=== PATIENT | male | born 1950 | race Caucasian/White ===

== ENCOUNTER 2022-05-01 20:44 | Inpatient (IN) ==
--- NOTE | 2022-05-01 21:32 | Emergency Department Note ---
History of Present Illness General Chief complaint: Respiratory Distress Stated complaint: TROUBLE BREATHING,DIZZINESS,SOB Time Seen by Provider: 05/01/22 21:31 History of Present Illness This 72-year-old male patient presents to the emergency department for evaluation of shortness of breath for the past 1-2 weeks with development of dizziness. His SOB is worse with exertion. He was sick the last 2 weeks of March, but denies any illnesses since that time. He was not evaluated at the time of illness did not do any at home COVID testing. He states that the URI symptoms have resolved from his illness in March, but he has not had very much energy since recovering from his illness. Has had dizziness intermittently since his illness in March resolved as well. Denies any chest pain. Denies any cough, fevers, or other URI symptoms currently. Denies any abdominal pain, nausea, or vomiting. Denies any urinary symptoms or problems with his BMs. Denies hematochezia, melena, hematuria, hemoptysis, or hematemesis. He denies any history of problems with his lungs - no COPD, emphysema, or asthma. He denies tobacco use. Denies any known heart problems. The patient denies recent long car or plane rides or recent injury/trauma/surgery. Denies any personal or family history of blood clots or bleeding disorders. Denies any hormonal medication use. He denies any significant health problems, but has not been to see a doctor in about 20 years. Not currently on any medications. Home Medications Medication Instructions Recorded Confirmed Type meclizine 25 mg tablet (Dramamine 25 mg PO DIRECTED PRN Motion 05/01/22 05/01/22 History Less Drowsy) Sickness Allergies Allergy/AdvReac Type Severity Reaction Status Date / Time No Known Allergies Allergy Verified 05/01/22 22:24 Past Med/Surg History Medical History No pertinent past medical history Surgical History History of appendectomy Family History Other Heart disease Social History Smoking Status: Never smoker Second Hand Exposure: No; Do You Dip or Chew Tobacco: No; Tobacco Cessation Education Requested by Patient: No Hx Alcohol Use: Yes Alcohol type: hard liquor Hx Substance Use: No Preferred Language: Norwegian Communication Ability: Effective Folder Machine Operator Required: No Beliefs That Will Affect Care: None Current Living Situation: Alone Other Information That Helps Us Care for You: No Feels Safe at Home: Yes Safety Concerns: Feels Safe At This Time Assistive Devices: Denture - Upper and Denture - Lower Review of Systems See HPI for pertinent positives & negatives. Physical Exam Vital Signs Vital Signs - 24 hr 05/01/22 20:51 05/01/22 21:08 05/01/22 21:05 Temperature 36.5 C Temperature Source Temporal Artery Scan Pulse Rate 128 H 120 H 120 H Pulse Rate from SpO2 Sensor 115 H Respiratory Rate 26 H 26 H Respiratory Effort / Characteristics Labored Blood Pressure Blood Pressure Mean Pulse Oximetry 92 93 Oxygen Delivery Method Room Air Room Air Sepsis Recent Fever Within 48 Hours No Sepsis New/Unexplained Change in Mental Status No Sepsis Action Taken by Nursing No Action Required 05/01/22 21:06 05/01/22 21:06 05/01/22 21:10 Temperature Temperature Source Pulse Rate 120 H 116 H Pulse Rate from SpO2 Sensor 119 H 116 H Respiratory Rate 20 20 Respiratory Effort / Characteristics Blood Pressure 152/104 H Blood Pressure Mean 120 Pulse Oximetry 93 94 Oxygen Delivery Method Room Air Room Air Sepsis Recent Fever Within 48 Hours Sepsis New/Unexplained Change in Mental Status Sepsis Action Taken by Nursing 05/01/22 21:20 05/01/22 21:30 05/01/22 21:30 Temperature Temperature Source Pulse Rate 113 H 110 H Pulse Rate from SpO2 Sensor 113 H 110 H Respiratory Rate 26 H 24 Respiratory Effort / Characteristics Blood Pressure 151/108 H Blood Pressure Mean 122 Pulse Oximetry 93 92 Oxygen Delivery Method Room Air Sepsis Recent Fever Within 48 Hours Sepsis New/Unexplained Change in Mental Status Sepsis Action Taken by Nursing 05/01/22 21:40 05/01/22 21:50 05/01/22 22:00 Temperature Temperature Source Pulse Rate 112 H 108 H Pulse Rate from SpO2 Sensor 113 H 108 H Respiratory Rate 24 23 Respiratory Effort / Characteristics Blood Pressure 168/113 H Blood Pressure Mean 131 Pulse Oximetry 94 93 Oxygen Delivery Method Sepsis Recent Fever Within 48 Hours Sepsis New/Unexplained Change in Mental Status Sepsis Action Taken by Nursing 05/01/22 22:00 05/01/22 22:10 05/01/22 22:20 Temperature Temperature Source Pulse Rate 108 H 103 H 101 H Pulse Rate from SpO2 Sensor 108 H 104 H 102 H Respiratory Rate 20 25 H 23 Respiratory Effort / Characteristics Blood Pressure Blood Pressure Mean Pulse Oximetry 94 95 95 Oxygen Delivery Method Sepsis Recent Fever Within 48 Hours Sepsis New/Unexplained Change in Mental Status Sepsis Action Taken by Nursing 05/01/22 23:30 05/02/22 00:00 Temperature Temperature Source Pulse Rate 97 H 91 H Pulse Rate from SpO2 Sensor 97 H 93 H Respiratory Rate 24 20 Respiratory Effort / Characteristics Blood Pressure 152/112 H 178/126 H Blood Pressure Mean 125 143 Pulse Oximetry 93 95 Oxygen Delivery Method Room Air Room Air Sepsis Recent Fever Within 48 Hours Sepsis New/Unexplained Change in Mental Status Sepsis Action Taken by Nursing VITALS: Vitals are noted on the nurse's note and reviewed by myself. GENERAL: Non toxic, no acute distress, non-diaphoretic. SKIN: Capillary refill <2 sec. EARS: External auditory canals clear, tympanic membranes pearly marx without erythema or effusion bilaterally. EYES: PERRLA. EOMI. Conjunctivae without injection, sclerae without icterus. NOSE: Patent without discharge. MOUTH: Mucous membranes moist. Uvula midline. Airway patent. NECK: Supple without nuchal rigidity. HEART: Tachycardic with grade III/ systolic flow murmur without gallops or rubs. LUNGS: Clear to auscultation bilaterally without wheezes, rales or rhonchi. No retractions or accessory muscle use. ABDOMEN: Positive bowel sounds x 4. Normal tympanic percussion. Soft, nontender, without masses or organomegaly. Bedoya sign negative. No guarding or rebound tenderness. No focal RLQ or LLQ tenderness. MUSCULOSKELETAL: No tenderness to palpation of the bilateral calves. Negative Homans' sign bilaterally. Peripheral pulses 2+. NEURO: Patient was alert and oriented to person place and time. No focal neurological deficits. Course Administered Medications Heparin Sodium/Dextrose (Heparin Sodium/Dextrose) 25,000 units in 500 mls @ 30 mls/hr IV .[id number] [facility]; Protocol Stop: 06/01/22 00:14 Last Admin: 05/02/22 00:39 Dose: 1,500 units/hr, 30 mls/hr Documented By: BRIDGETTE Co-signed By: LUZ Discontinued Medications Heparin Sodium (Porcine) (Heparin Sod (Porcine) 1000 Unit/Ml) 7,000 units IV TODAY@0015 MAXX Stop: 05/02/22 03:15 Last Admin: 05/02/22 00:39 Dose: 7,000 units Documented By: BRIDGETTE Co-signed By: LUZ Heparin Sodium/Dextrose (Heparin Iv Adult Wt-Based Standard With Bolus Protocol) 1 each IV NOW STA; Protocol Stop: 05/01/22 23:53 Last Admin: 05/02/22 00:46 Dose: Not Given Documented By: BRIDGETTE Sodium Chloride (Nss) 500 mls @ 999 mls/hr IV .Q31M STA Stop: 05/01/22 22:12 Last Infusion: 05/01/22 22:27 Dose: 0 mls/hr Documented By: Admin: 05/01/22 21:56 Dose: 999 mls/hr Documented By: DOTTIE Ioversol (Optiray 320 500ml) 112 ml IV ONCE ONE Stop: 05/01/22 22:58 Last Admin: 05/01/22 22:58 Dose: 112 ml Documented By: PAIGE Labetalol HCl (Labetalol Hcl Iv 5 Mg/Ml 20ml) 5 mg IV NOW STA Stop: 05/02/22 00:10 Last Admin: 05/02/22 00:38 Dose: 5 mg Documented By: BRIDGETTE Co-signed By: LUZ Medical Decision Making Differential Diagnosis Differential diagnosis includes URI, COVID, RSV, influenza, bronchitis, pneumonia, pneumothorax, hemothorax, PE, MN, pericarditis, myocarditis, airway obstruction, aspiration, pulmonary edema, asthma, COPD, CHF, pleurisy, metabolic acidosis, anemia, neoplasm, or others. Laboratory Data Attestation: I reviewed the patient's lab results. 05/01/22 21:05 05/01/22 21:05 Lab Results 05/01/22 05/01/22 05/01/22 Range/Units 21:05 21:05 21:05 WBC 7.39 (4.8-10.8) K/ul RBC 5.73 (4.70-6.10) M/uL Hgb 14.7 (14.0-18.0) g/dl Hct 44.9 (42.0-52.0) % MCV 78.4 L (80.0-100.0) fL MCH 25.7 (25.0-34.0) pg MCHC 32.7 (32.0-36.0) g/dL RDW Std Deviation 47.5 H (36.4-46.3) fL RDW Coeff of Edvin 17.4 H (11.5-14.5) % Plt Count 342 (130-400) K/uL MPV 10.0 (9.4-12.4) fL Immature Gran % (Auto) 0.4 % Neut % (Auto) 69.2 % Lymph % (Auto) 20.7 % [place] % (Auto) 8.4 % Eos % (Auto) 0.4 % Baso % (Auto) 0.9 % Neut # (Auto) 5.11 (1.40-6.50) K/uL Lymph # (Auto) 1.53 (1.2-3.4) K/uL [place] # (Auto) 0.62 H (0.11-0.59) K/uL Eos # (Auto) 0.03 (0-0.50) K/uL Baso # (Auto) 0.07 (0-0.2) K/uL Immature Gran # (Auto) 0.03 (0.01-0.20) K/uL PT Cancelled INR Cancelled APTT Cancelled PTT Ratio Cancelled Sodium 141 (136-145) mmol/L Potassium 4.0 (3.5-5.1) mmol/L Chloride 111 H (98-107) mmol/L Carbon Dioxide 21 (21-32) mmol/L Anion Gap 9 (3-11) BUN 21 (6-23) mg/dl Creatinine 1.42 H (0.6-1.4) mg/dl Est Cr Clr Drug Dosing 55.0 ml/min Est GFR ( Amer) 56.4 ml/min Est GFR (Non-Af Amer) 48.7 ml/min BUN/Creatinine Ratio 14.8 (10-20) Glucose 172 H (70-99(Fasting)) mg/dl Calcium 9.3 (8.5-10.1) mg/dl Total Bilirubin 0.8 (0.2-1.0) mg/dl AST 13 (13-39) U/L ALT 11 (7-52) U/L Alkaline Phosphatase 80 (34-104) U/L Troponin I High Sens 82.1 H* (0-20) pg/ml Total Protein 8.0 (6.0-8.3) gm/dl Albumin 4.3 (3.4-5.0) gm/dl Globulin 3.7 (2.5-4.0) gm/dl Albumin/Globulin Ratio 1.2 (0.9-2) SARS-CoV-2 (PCR) (Negative) Influenza Type A (PCR) (Neg) Influenza Type B (PCR) (Neg) RSV (RT-PCR) (Neg) 05/01/22 05/01/22 Range/Units 21:52 23:45 WBC (4.8-10.8) K/ul RBC (4.70-6.10) M/uL Hgb (14.0-18.0) g/dl Hct (42.0-52.0) % MCV (80.0-100.0) fL MCH (25.0-34.0) pg MCHC (32.0-36.0) g/dL RDW Std Deviation (36.4-46.3) fL RDW Coeff of Edvin (11.5-14.5) % Plt Count (130-400) K/uL MPV (9.4-12.4) fL Immature Gran % (Auto) % Neut % (Auto) % Lymph % (Auto) % [place] % (Auto) % Eos % (Auto) % Baso % (Auto) % Neut # (Auto) (1.40-6.50) K/uL Lymph # (Auto) (1.2-3.4) K/uL [place] # (Auto) (0.11-0.59) K/uL Eos # (Auto) (0-0.50) K/uL Baso # (Auto) (0-0.2) K/uL Immature Gran # (Auto) (0.01-0.20) K/uL PT 11.2 INR 1.1 APTT 26.5 PTT Ratio 1.0 Sodium (136-145) mmol/L Potassium (3.5-5.1) mmol/L Chloride (98-107) mmol/L Carbon Dioxide (21-32) mmol/L Anion Gap (3-11) BUN (6-23) mg/dl Creatinine (0.6-1.4) mg/dl Est Cr Clr Drug Dosing ml/min Est GFR ( Amer) ml/min Est GFR (Non-Af Amer) ml/min BUN/Creatinine Ratio (10-20) Glucose (70-99(Fasting)) mg/dl Calcium (8.5-10.1) mg/dl Total Bilirubin (0.2-1.0) mg/dl AST (13-39) U/L ALT (7-52) U/L Alkaline Phosphatase (34-104) U/L Troponin I High Sens (0-20) pg/ml Total Protein (6.0-8.3) gm/dl Albumin (3.4-5.0) gm/dl Globulin (2.5-4.0) gm/dl Albumin/Globulin Ratio (0.9-2) SARS-CoV-2 (PCR) NEGATIVE (Negative) Influenza Type A (PCR) Negative (Neg) Influenza Type B (PCR) Negative (Neg) RSV (RT-PCR) Negative (Neg) Imaging Data Radiologist's Impression: Preliminary Findings Only See Final Report For Complete Findings CTA CHEST: Pulmonary emboli extend from the right and left pulmonary arteries into the segmental branches throughout both lungs. Mild paradoxical bowing of the intraventricular septum concerning for right heart strain. No consolidation. The heart size is within normal limits. No pathologically enlarged lymph nodes. Large hiatal hernia. No fracture. Radiologist: Jennifer Alberto MD Study ready at 23:10 and initial results transmitted at 23:39 Communications: Clear Time Type Notes 05/01/22 23:41 Call Doctor Regarding Abo ve results, called Dr. Liat Whittaker on 05/01 23:41 (-05:00) [facility] Narrative I examined the patient. An IV lock was placed and labs were drawn. The patient was tachycardic, tachypneic, and hypertensive upon presentation. Continuous color television console monitor: Order was placed for continuous color television console monitor. Patient was placed on the color television console monitor and continuous pulse ox. Patient was noted to be in normal sinus rhythm at an initial rate of 115 bpm per my interpretation. EKG was interpreted by myself as sinus tachycardia at 127 bpm with an incomplete right bundle branch block with no previous EKG to compare. No acute ST or T wave changes. He declined any medication for pain while in the emergency department. He was given 500 mL normal saline solution bolus. The patient's blood pressure continued to rise while in the emergency department and he was given labetalol 5 mg IV. CBC without evidence for leukocytosis or anemia. Coags were normal. Creatinine elevated 1.42 and glucose 172, but CMP otherwise unremarkable. Troponin was elevated at 82.1. COVID, influenza, and RSV were negative. CTA of the chest was reviewed by myself and read by stat rad as above and shows pulmonary emboli extending from the right and left pulmonary arteries into the segmental branches throughout both lungs. Mild paradoxical bowing of the intraventricular septum concerning for right heart strain. The patient has not seen a family doctor in over 20 years per patient. The patient's symptoms started after an upper respiratory illness the end of March. The patient may have had undiagnosed COVID and developed the PEs secondary to COVID. He also has a heart murmur on exam that he was not aware of that will need to be evaluated further. I had a meaningful discussion about this patient with Dr. Leiva who agrees with my assessment and the treatment plan. The patient denies any history of intracranial bleeding, GI bleeding, or other abnormal bleeding. He was started on heparin for the PEs. I spoke with the on-call hospitalist who agreed to admit the patient for further evaluation and treatment. Please refer to their dictation for further details. The patient's care was transferred in stable condition. Impression & Plan Pulmonary emboli Discharge Plan Visit Data Chief Complaint: Respiratory Distress Stated Complaint: TROUBLE BREATHING,DIZZINESS,SOB ED Provider: Angela Leiva ED Midlevel Provider: Idalia Whittaker Discharge Problem: Pulmonary emboli Patient Disposition: Admitted As Inpatient Condition: Good Discharge Instructions Interventions: ED Discharge Assessment Last Done: 05/02/22 02:25
[2022-05-01] MEDS ORDERED: SODIUM CHLORIDE 0.9% 500 ML IV STA (21:42)
[2022-05-01 22:17] LABS: Basophils # (auto) 0.07 K/uL (0-0.2); Basophils % (auto) 0.9 %; Eosinophils # (auto) 0.03 K/uL (0-0.50); Eosinophils % (auto) 0.4 %; Hematocrit (blood only) 44.9 % (42.0-52.0); Hemoglobin 14.7 g/dl (14.0-18.0); Immature Granulocytes # (auto) 0.03 K/uL (0.01-0.20); Immature Granulocytes % (auto) 0.4 %; Lymphocytes # (auto) 1.53 K/uL (1.2-3.4); Lymphocytes % (auto) 20.7 %; Mean Corpuscular Hemoglobin 25.7 pg (25.0-34.0); Mean Corpuscular Hgb Conc 32.7 g/dL (32.0-36.0); Mean Corpuscular Volume 78.4 fL (80.0-100.0); Monocytes # (auto) 0.62 K/uL (0.11-0.59); Monocytes % (auto) 8.4 %; Neutrophils # (auto) 5.11 K/uL (1.40-6.50); Neutrophils % (auto) 69.2 %; Platelet Count 342 K/uL (130-400); RDW Coefficient of Variation 17.4 % (11.5-14.5); RDW Standard Deviation 47.5 fL (36.4-46.3); Red Blood Count 5.73 M/uL (4.70-6.10); White Blood Count 7.39 K/ul (4.8-10.8)
[2022-05-01 22:24] LABS: Albumin Globulin Ratio 1.2 (0.9-2); Albumin Level 4.3 gm/dl (3.4-5.0); BUN Creatinine Ratio 14.8 (10-20); Bilirubin,Total 0.8 mg/dl (0.2-1.0); Calcium 9.3 mg/dl (8.5-10.1); Est GFR (African American) 56.4 ml/min; Est GFR (Non-African American) 48.7 ml/min; Globulin 3.7 gm/dl (2.5-4.0)
[2022-05-01 22:35] LABS: Troponin I High Sensitivity 82.1 pg/ml (0-20)
[2022-05-01] MEDS ORDERED: OPTIRAY 320 500ml IV ONE (22:57)
[2022-05-01 23:06] LABS: Influenza A virus by PCR Negative (Neg); Influenza B virus by PCR Negative (Neg); RSV by PCR Negative (Neg); SARS CoV2 RNA(COVID-19) Ceph NEGATIVE (Negative)
[2022-05-01] MEDS ORDERED: Heparin IV Adult Wt-Based Standard WITH Bolus Protocol IV STA (23:52)
[2022-05-02] MEDS ORDERED: HEPARIN SOD (PORCINE) 1000 UNIT/ML IV ONE (00:07)
[2022-05-02] MEDS ORDERED: LABETALOL HCL IV 5 MG/ML 20ML IV STA (00:09)
[2022-05-02] MEDS ORDERED: HEPARIN SOD (PORCINE) 1000 UNIT/ML IV SCH (00:15)
[2022-05-02] MEDS ORDERED: HEPARIN SODIUM/DEXTROSE 25,000 UNITS/500 ML BAG IV SCH (00:15)
[2022-05-02 00:33] LABS: INR 1.1 (0.9-1.1); Partial Thromboplastin Time 26.5 Seconds (21.0-31.0); Prothrombin Time 11.2 Seconds (9.0-12.0)
--- NOTE | 2022-05-02 00:34 | History & Physical Report ---
Date of Service May 02, 2022 Assessment & Plan (1) Pulmonary emboli: Plan: 72-year-old male with no known past medical history presenting with 2 weeks of progressive dyspnea on exertion. Patient tachycardic and tachypneic upon arrival. Labs with mild elevation of troponin = 82.1. CTA of the chest with bilateral PEs, suggestion of right heart strain. EKG with incomplete right bundle branch blockno prior studies available for comparison. Suspect provoked PE in setting of patient's recent illness. He describes URI with headache, fever, fatigue and cough several weeks ago which lasted approximately 10 days. No personal or family history of VTE. Presently afebrile, hemodynamically stable with heart rate = 85, blood pressure = 1 52/105. He is breathing 22 breaths/min saturating 94% on room air. No chest pain. Admit to PCU Continue heparin drip Check 2D echo Supplemental oxygen as needed Repeat troponin with a.m. labs Transition to DOAC in the morning Patient does not routinely seek medical care. He has not seen a physician for over 20 years. He is interested in establishing care. He lives in [facility]. We will check lipid panel and hemoglobin A1c with morning labs. Discussed with patient prior to ordering. Recommend establishing with a PCP so patient can undergo age-appropriate cancer screening and routine outpatient follow-up History of Present Illness Chief Complaint: Shortness of breath Primary Care Provider: NO PCP Miah Farley is a pleasant 72-year-old male with no known significant medical history presenting with persistent and progressive shortness of breath over the last 2 weeks. Patient reports being ill at the end of March for approximately 10 days. He had headache, dizziness, fever, fatigue and cough at that time. He did not take a COVID or influenza test. Since being ill, he has had persistent and progressive shortness of breath. He feels short of breath mostly with exertion, very minimal shortness of breath at rest. He denies chest pain, palpitations, dizziness, syncope. Denies lower extremity pain or swelling. No additional complaints such as fever, chills, abdominal pain, nausea, vomiting, diarrhea, constipation. In the ER patient is afebrile, heart rate initially elevated to 128 bpm. Blood pressure has been stable. Patient tachypneic upon arrival with respiratory rate of 26 breaths/min saturating 92% on room air. Work-up revealed mildly elevated troponin at 82. CTA as below with bilateral pulmonary emboli. Patient with no personal history of VTE and no known family history of VTE. He denies trauma, prolonged immobility outside of his recent illness. Patient does not routinely seek medical care and is not up-to-date with his age-appropriate cancer screenings to include colonoscopy and PSA. ER course: Normal saline x500 mL Labetalol 5 mg IV Heparin bolus and drip initiated per protocol Allergies Allergy/AdvReac Type Severity Reaction Status Date / Time No Known Allergies Allergy Verified 05/01/22 22:24 Home Medications Medication Instructions Recorded Confirmed Type meclizine 25 mg tablet (Dramamine 25 mg PO DIRECTED PRN Motion 05/01/22 05/01/22 History Less Drowsy) Sickness Past Med/Surg History Medical History No pertinent past medical history Surgical History History of appendectomy Family History (Updated 05/02/22 @ 01:19 by Diamond Corrigan DO) Other Heart disease Social History (Updated 05/02/22 @ 01:19 by Diamond Corrigan DO) Smoking Status: Never smoker Hx Alcohol Use: No Hx Substance Use: No Feels Safe at Home: Yes Review of Systems Review of Systems: All systems reviewed & are unremarkable except as noted in HPI & below Physical Exam Physical Exam: General: patient resting comfortably, NAD, non-toxic in appearance, AA&O x 4 Skin: warm, dry, intact, no rashes or lesions HEENT: NC/AT, PERRL, EOMI, anicteric sclera, conjunctiva without injection, external ear normal to inspection and nontender, nares patent, moist mucus membranes, dentition intact, no oropharyngeal lesions, neck supple, trachea midline, no LAD, no thyromegaly, no JVD Heart: +S1/S2, regular, no m/r/g Lungs: equal air entry bilaterally, no rales/rhonchi/wheezes Abd: +BS, soft, NT/ND, no masses/organomegaly/ascites Ext: warm, 2+ pulses in UE/LE bilaterally, no clubbing/cyanosis or edema Neuro: nonfocal, patient AA&O x 4, speech intact, no facial droop, moving all extremities on command with equal strength 5/5 Results & Data Results & Data ([facility]) Vital Signs (Past 12 Hours) Vital Signs Temp Pulse Resp BP Pulse Ox O2 Del Method 05/01/22 23:30 97 H 24 152/112 H 93 Room Air 05/01/22 22:20 101 H 23 95 05/01/22 22:10 103 H 25 H 95 05/01/22 22:00 108 H 20 94 05/01/22 22:00 168/113 H 05/01/22 21:50 108 H 23 93 05/01/22 21:40 112 H 24 94 05/01/22 21:30 110 H 24 92 05/01/22 21:30 151/108 H 05/01/22 21:20 113 H 26 H 93 Room Air 05/01/22 21:10 116 H 20 94 Room Air 05/01/22 21:06 152/104 H 05/01/22 21:06 120 H 20 93 Room Air 05/01/22 21:05 120 H 26 H 93 Room Air 05/01/22 21:08 120 H 05/01/22 20:51 36.5 C 128 H 26 H 92 Room Air Laboratory Results Laboratory Results WBC 7.39 K/ul (4.8-10.8) 05/01/22 21:05 RBC 5.73 M/uL (4.70-6.10) 05/01/22 21:05 Hgb 14.7 g/dl (14.0-18.0) 05/01/22 21:05 Hct 44.9 % (42.0-52.0) 05/01/22 21:05 MCV 78.4 fL (80.0-100.0) L 05/01/22 21:05 MCH 25.7 pg (25.0-34.0) 05/01/22 21:05 MCHC 32.7 g/dL (32.0-36.0) 05/01/22 21:05 RDW Std Deviation 47.5 fL (36.4-46.3) H 05/01/22 21:05 RDW Coeff of Edvin 17.4 % (11.5-14.5) H 05/01/22 21:05 Plt Count 342 K/uL (130-400) 05/01/22 21:05 MPV 10.0 fL (9.4-12.4) 05/01/22 21:05 Immature Gran % (Auto) 0.4 % 05/01/22 21:05 Neut % (Auto) 69.2 % 05/01/22 21:05 Lymph % (Auto) 20.7 % 05/01/22 21:05 [place] % (Auto) 8.4 % 05/01/22 21:05 Eos % (Auto) 0.4 % 05/01/22 21:05 Baso % (Auto) 0.9 % 05/01/22 21:05 Neut # (Auto) 5.11 K/uL (1.40-6.50) 05/01/22 21:05 Lymph # (Auto) 1.53 K/uL (1.2-3.4) 05/01/22 21:05 [place] # (Auto) 0.62 K/uL (0.11-0.59) H 05/01/22 21:05 Eos # (Auto) 0.03 K/uL (0-0.50) 05/01/22 21:05 Baso # (Auto) 0.07 K/uL (0-0.2) 05/01/22 21:05 Immature Gran # (Auto) 0.03 K/uL (0.01-0.20) 05/01/22 21:05 PT 11.2 Seconds (9.0-12.0) 05/01/22 23:45 INR 1.1 (0.9-1.1) 05/01/22 23:45 APTT 26.5 Seconds (21.0-31.0) 05/01/22 23:45 PTT Ratio 1.0 05/01/22 23:45 Sodium 141 mmol/L (136-145) 05/01/22 21:05 Potassium 4.0 mmol/L (3.5-5.1) 05/01/22 21:05 Chloride 111 mmol/L (98-107) H 05/01/22 21:05 Carbon Dioxide 21 mmol/L (21-32) 05/01/22 21:05 Anion Gap 9 (3-11) 05/01/22 21:05 BUN 21 mg/dl (6-23) 05/01/22 21:05 Creatinine 1.42 mg/dl (0.6-1.4) H 05/01/22 21:05 Est Cr Clr Drug Dosing 55.0 ml/min 05/01/22 21:05 Est GFR ( Amer) 56.4 ml/min 05/01/22 21:05 Est GFR (Non-Af Amer) 48.7 ml/min 05/01/22 21:05 BUN/Creatinine Ratio 14.8 (10-20) 05/01/22 21:05 Glucose 172 mg/dl (70-99(Fasting)) H 05/01/22 21:05 Calcium 9.3 mg/dl (8.5-10.1) 05/01/22 21:05 Total Bilirubin 0.8 mg/dl (0.2-1.0) 05/01/22 21:05 AST 13 U/L (13-39) 05/01/22 21:05 ALT 11 U/L (7-52) 05/01/22 21:05 Alkaline Phosphatase 80 U/L (34-104) 05/01/22 21:05 Troponin I High Sens 82.1 pg/ml (0-20) H* 05/01/22 21:05 Total Protein 8.0 gm/dl (6.0-8.3) 05/01/22 21:05 Albumin 4.3 gm/dl (3.4-5.0) 05/01/22 21:05 Globulin 3.7 gm/dl (2.5-4.0) 05/01/22 21:05 Albumin/Globulin Ratio 1.2 (0.9-2) 05/01/22 21:05 SARS-CoV-2 (PCR) NEGATIVE (Negative) 05/01/22 21:52 Influenza Type A (PCR) Negative (Neg) 05/01/22 21:52 Influenza Type B (PCR) Negative (Neg) 05/01/22 21:52 RSV (RT-PCR) Negative (Neg) 05/01/22 21:52 Diagnostic Findings CTA chest: Per stat read Pulmonary emboli extend from the right and left pulmonary arteries into the segmental branches throughout both lungs. Mild paradoxical bowing of the interventricular septum concerning for right heart strain. No consolidation. The heart size within normal limits. No pathologically enlarged lymph nodes. Large hiatal hernia. No fracture Chest x-rayper my interpretation. No acute process ECG Additional Comments: EKG revealed sinus tachycardia at 127 bpm, WA = 180, QRS = 98, QTc = 44, incomplete right bundle branch block present. No previous EKGs available for comparison Code Status & VTE Plan VTE Prophylaxis Plan VTE Prophylaxis will be ordered: Yes PG Care Time/CCT Total # of Minutes Spent Total Time Spent with Patient: Total time spent is greater than 50% in coordination of care (as documented) at patient's floor/unit and/or counseling patient: Coding Level of Care Code 21419 INT INP/OBS CARE 2MIN Diagnoses Pulmonary emboli I26.99
[2022-05-02] MEDS ORDERED: ACETAMINOPHEN 325 MG TAB PO PRN (02:23)
--- NOTE | 2022-05-02 07:46 | CT Scan Report ---
CHEST CTA for PULMONARY ARTERIES CT DOSE: 411.90 mGy.cm HISTORY: Shortness of breath. TECHNIQUE: Multiaxial CT images of the chest were performed following the intravenous administration of contrast to evaluate the pulmonary arteries. Maximal intensity projection images were also obtaine d. A dose lowering technique was utilized adhering to the principles of ALARA. COMPARISON STUDY: None. FINDINGS: Normal caliber thoracic aorta with no evidence for a dissection. No pleural or pericardial effusions. There is a large hiatus hernia containing the majority the stomach. No mediastinal or gama r lymphadenopathy. There is flattening of the intraventricular septum with the largest on the right v entricle consistent with right-sided heart strain. There is extensive bilateral pulmonary emboli invo lving the distal bilateral main pulmonary arteries and extending into the majority of the lobar and s egmental pulmonary arteries. Limited views the upper abdomen demonstrate normal liver and spleen. The right adrenal gland is unremarkable. No pneumothorax. The central airways are patent. Small patchy p eripheral densities within the right lower lobe may represent developing pulmonary infarcts. Otherwis e, the lungs are clear. There are old, healed right-sided rib fractures. IMPRESSION: 1. Extensive bilateral pulmonary emboli with associated right heart strain. 2. Large hiatus hernia. 3. Small peripheral airspace opacities within the right lower lobe may represent developing pulmonary infarcts. ACT 112: Negative or not required by law. Electronically signed by: Rustam Moralez M.D. 05/02/2022 7:43 AM
[2022-05-02 07:58] LABS: Hematocrit (blood only) 38.7 % (42.0-52.0); Hemoglobin 12.7 g/dl (14.0-18.0); Mean Corpuscular Hemoglobin 25.6 pg (25.0-34.0); Mean Corpuscular Hgb Conc 32.8 g/dL (32.0-36.0); Mean Platelet Volume 9.5 fL (9.4-12.4); Platelet Count 258 K/uL (130-400); RDW Standard Deviation 48.4 fL (36.4-46.3); Red Blood Count 4.96 M/uL (4.70-6.10); White Blood Count 6.35 K/ul (4.8-10.8)
[2022-05-02 08:16] LABS: BUN Creatinine Ratio 15.4 (10-20); Calcium 8.5 mg/dl (8.5-10.1); Creatinine Clr Calc Pharmacy 66.8 ml/min; Est GFR (African American) 71.3 ml/min; Est GFR (Non-African American) 61.5 ml/min; Potassium 3.8 mmol/L (3.5-5.1)
[2022-05-02 08:23] LABS: Troponin I High Sensitivity 47.1 pg/ml (0-20)
[2022-05-02 08:35] LABS: Partial Thromboplastin Ratio 2.4
--- NOTE | 2022-05-02 08:41 | XRay Report ---
XR chest 1V portable CLINICAL HISTORY: Shortness of breath. COMPARISON STUDY: No previous studies for comparison. FINDINGS: A large hiatal hernia is noted. There is no pneumothorax or pleural effusion. No consolidat ion is present. Cardiac size is normal. There is no evidence for pulmonary edema. IMPRESSION: 1. No acute cardiopulmonary findings. 2. Large hiatal hernia. ACT 112: Negative or not required by law. Electronically signed by: Jose Alejandro Heart M.D. 05/02/2022 8:40 AM
[2022-05-02 08:42] LABS: Partial Thromboplastin Time 66.2 Seconds (21.0-31.0)
[2022-05-02 08:50] LABS: Estimated Average Glucose 120 mg/dl; Hemoglobin A1C 5.8 % (4.5-5.6)
--- NOTE | 2022-05-02 10:15 | Electrocardiogram Report ---
Test Reason : Blood Pressure : / mmHG Vent. Rate : 127 BPM Atrial Rate : 127 BPM P-R Int : 180 ms QRS Dur : 098 ms QT Int : 278 ms P-R-T Axes : 038 015 033 degrees QTc Int : 404 ms Sinus tachycardia Incomplete right bundle branch block Abnormal ECG No previous ECGs available Confirmed by Alvarado Leiberman ([id number]) on 05/02/2022 10:14:56 AM Referred By: REFERRED SELF Confirmed By:Carlo Lieberman
[2022-05-02] MEDS ORDERED: APIXABAN 5 MG TABLET PO ONE (10:30)
--- NOTE | 2022-05-02 10:33 | XCELERA ---
[id number] \\[id number]_[id number]}___[id number]
--- NOTE | 2022-05-02 14:58 | Discharge Summary ---
Date of Service May 02, 2022 Admission HPI Per Admitting Provider Miah Farley is a pleasant 72-year-old male with no known significant medical history presenting with persistent and progressive shortness of breath over the last 2 weeks. Patient reports being ill at the end of March for approximately 10 days. He had headache, dizziness, fever, fatigue and cough at that time. He did not take a COVID or influenza test. Since being ill, he has had persistent and progressive shortness of breath. He feels short of breath mostly with exertion, very minimal shortness of breath at rest. He denies chest pain, palpitations, dizziness, syncope. Denies lower extremity pain or swelling. No additional complaints such as fever, chills, abdominal pain, nausea, vomiting, diarrhea, constipation. In the ER patient is afebrile, heart rate initially elevated to 128 bpm. Blood pressure has been stable. Patient tachypneic upon arrival with respiratory rate of 26 breaths/min saturating 92% on room air. Work-up revealed mildly elevated troponin at 82. CTA as below with bilateral pulmonary emboli. Patient with no personal history of VTE and no known family history of VTE. He denies trauma, prolonged immobility outside of his recent illness. Patient does not routinely seek medical care and is not up-to-date with his age-appropriate cancer screenings to include colonoscopy and PSA. ER course: Normal saline x500 mL Labetalol 5 mg IV Heparin bolus and drip initiated per protocol Principal Diagnosis Pulmonary Embolism Discharge Exam General:NAD, non-toxic in appearance, AOx3 Skin: warm, dry, intact, no rashes or lesions HEENT: NC/AT, anicteric sclera, conjunctiva without injection moist mucus membranes, neck supple, trachea midline, no LAD, no thyromegaly, no JVD Heart: +S1/S2, regular, no m/r/g Lungs: equal air entry bilaterally, no rales/rhonchi/wheezes Abd: +BS, soft, NT/ND, no masses/organomegaly/ascites Ext: warm, 2+ pulses in UE/LE bilaterally, no clubbing/cyanosis or edema Neuro: nonfocal, speech intact Discharge Data Allergies Allergy/AdvReac Type Severity Reaction Status Date / Time No Known Allergies Allergy Verified 05/01/22 22:24 Consultations 05/02/22 00:33 ED Decision to Admit Stat 05/02/22 11:31 [facility] Routine Ordered Studies Laboratory Results WBC 6.35 K/ul (4.8-10.8) 05/02/22 07:35 RBC 4.96 M/uL (4.70-6.10) 05/02/22 07:35 Hgb 12.7 g/dl (14.0-18.0) L 05/02/22 07:35 Hct 38.7 % (42.0-52.0) L 05/02/22 07:35 MCV 78.0 fL (80.0-100.0) L 05/02/22 07:35 MCH 25.6 pg (25.0-34.0) 05/02/22 07:35 MCHC 32.8 g/dL (32.0-36.0) 05/02/22 07:35 RDW Std Deviation 48.4 fL (36.4-46.3) H 05/02/22 07:35 RDW Coeff of Edvin 17.0 % (11.5-14.5) H 05/02/22 07:35 Plt Count 258 K/uL (130-400) 05/02/22 07:35 MPV 9.5 fL (9.4-12.4) 05/02/22 07:35 Immature Gran % (Auto) 0.4 % 05/01/22 21:05 Neut % (Auto) 69.2 % 05/01/22 21:05 Lymph % (Auto) 20.7 % 05/01/22 21:05 Coles % (Auto) 8.4 % 05/01/22 21:05 Eos % (Auto) 0.4 % 05/01/22 21:05 Baso % (Auto) 0.9 % 05/01/22 21:05 Neut # (Auto) 5.11 K/uL (1.40-6.50) 05/01/22 21:05 Lymph # (Auto) 1.53 K/uL (1.2-3.4) 05/01/22 21:05 Coles # (Auto) 0.62 K/uL (0.11-0.59) H 05/01/22 21:05 Eos # (Auto) 0.03 K/uL (0-0.50) 05/01/22 21:05 Baso # (Auto) 0.07 K/uL (0-0.2) 05/01/22 21:05 Immature Gran # (Auto) 0.03 K/uL (0.01-0.20) 05/01/22 21:05 PT 11.2 Seconds (9.0-12.0) 05/01/22 23:45 INR 1.1 (0.9-1.1) 05/01/22 23:45 APTT 66.2 Seconds (21.0-31.0) H* 05/02/22 07:35 PTT Ratio 2.4 05/02/22 07:35 Sodium 141 mmol/L (136-145) 05/02/22 07:35 Potassium 3.8 mmol/L (3.5-5.1) 05/02/22 07:35 Chloride 111 mmol/L (98-107) H 05/02/22 07:35 Carbon Dioxide 24 mmol/L (21-32) 05/02/22 07:35 Anion Gap 6 (3-11) 05/02/22 07:35 BUN 18 mg/dl (6-23) 05/02/22 07:35 Creatinine 1.17 mg/dl (0.6-1.4) 05/02/22 07:35 Est Cr Clr Drug Dosing 66.8 ml/min 05/02/22 07:35 Est GFR ( Amer) 71.3 ml/min 05/02/22 07:35 Est GFR (Non-Af Amer) 61.5 ml/min 05/02/22 07:35 BUN/Creatinine Ratio 15.4 (10-20) 05/02/22 07:35 Glucose 107 mg/dl (70-99(Fasting)) H 05/02/22 07:35 Estimat Average Glucose 120 mg/dl 05/02/22 07:35 Hemoglobin A1c 5.8 % (4.5-5.6) H 05/02/22 07:35 Calcium 8.5 mg/dl (8.5-10.1) 05/02/22 07:35 Total Bilirubin 0.8 mg/dl (0.2-1.0) 05/01/22 21:05 AST 13 U/L (13-39) 05/01/22 21:05 ALT 11 U/L (7-52) 02/21/23 21:05 Alkaline Phosphatase 80 U/L (34-104) 05/01/22 21:05 Troponin I High Sens 47.1 pg/ml (0-20) H D 05/02/22 07:35 Total Protein 8.0 gm/dl (6.0-8.3) 05/01/22 21:05 Albumin 4.3 gm/dl (3.4-5.0) 05/01/22 21:05 Globulin 3.7 gm/dl (2.5-4.0) 05/01/22 21:05 Albumin/Globulin Ratio 1.2 (0.9-2) 05/01/22 21:05 Triglycerides 63 mg/dl (0-150) 05/02/22 07:35 Cholesterol 160 mg/dl (0-200) 05/02/22 07:35 LDL Cholesterol, Calc 115 mg/dl 05/02/22 07:35 VLDL Cholesterol, Calc 13 mg/dl (0-30) 05/02/22 07:35 HDL Cholesterol 32 mg/dl 05/02/22 07:35 Cholesterol/HDL Ratio 5.0 (0-5) 05/02/22 07:35 SARS-CoV-2 (PCR) NEGATIVE (Negative) 05/01/22 21:52 Influenza Type A (PCR) Negative (Neg) 05/01/22 21:52 Influenza Type B (PCR) Negative (Neg) 05/01/22 21:52 RSV (RT-PCR) Negative (Neg) 05/01/22 21:52 Impressions Chest X-Ray 05/01/22 21:42 XR chest 1V portable CLINICAL HISTORY: Shortness of breath. COMPARISON STUDY: No previous studies for comparison. FINDINGS: A large hiatal hernia is noted. There is no pneumothorax or pleural effusion. No consolidation is present. Cardiac size is normal. There is no evidence for pulmonary edema. IMPRESSION: 1. No acute cardiopulmonary findings. 2. Large hiatal hernia. ACT 112: Negative or not required by law. Electronically signed by: Jose Alejandro Heart M.D. 05/02/2022 8:40 AM Chest CTA 05/01/22 22:07 CHEST CTA for PULMONARY ARTERIES CT DOSE: 411.90 mGy.cm HISTORY: Shortness of breath. TECHNIQUE: Multiaxial CT images of the chest were performed following the intravenous administration of contrast to evaluate the pulmonary arteries. Maximal intensity projection images were also obtained. A dose lowering technique was utilized adhering to the principles of ALARA. COMPARISON STUDY: None. FINDINGS: Normal caliber thoracic aorta with no evidence for a dissection. No pleural or pericardial effusions. There is a large hiatus hernia containing the majority the stomach. No mediastinal or hilar lymphadenopathy. There is flattening of the intraventricular septum with the largest on the right ventricle consistent with right-sided heart strain. There is extensive bilateral pulmonary emboli involving the distal bilateral main pulmonary arteries and extending into the majority of the lobar and segmental pulmonary arteries. Limited views the upper abdomen demonstrate normal liver and spleen. The right adrenal gland is unremarkable. No pneumothorax. The central airways are patent. Small patchy peripheral densities within the right lower lobe may represent developing pulmonary infarcts. Otherwise, the lungs are clear. There are old, healed right-sided rib fractures. IMPRESSION: 1. Extensive bilateral pulmonary emboli with associated right heart strain. 2. Large hiatus hernia. 3. Small peripheral airspace opacities within the right lower lobe may represent developing pulmonary infarcts. ACT 112: Negative or not required by law. Electronically signed by: Rustam Moralez M.D. 05/02/2022 7:43 AM Hospital Course (1) Pulmonary emboli: 72-year-old male with no known past medical history presenting with a few weeks of progressive dyspnea on exertion. #Pulmonary Embolism Patient tachycardic and tachypneic upon arrival. Suspect provoked PE in setting of patient's recent illness. He describes URI with headache, fever, fatigue and cough several weeks ago which lasted approximately 10 days. No personal or family history of VTE. - troponin 82.1, peaked. - CTA of the chest with bilateral PEs, suggestion of right heart strain. - EKG with incomplete right bundle branch blockno prior studies available for comparison. - Echo: Grade 1 diastolic dysfunction, EF 60-65%, no LVH, R ventricular systolic pressure elevated 30-40mmHg Started on heparin drip. Transitioned to Eliquis which he will continue for the next 3-6 months. Recommend establishing with a PCP so patient can undergo age-appropriate cancer screening and routine outpatient follow-up Total Time Total Time Spent Total Time Spent (In Minutes): 30 Discharge Plan Discharge Items Patient Disposition: Home - Self-Care Reason For Visit: ACUTE PE Discharge Diagnosis: Pulmonary Embolism Condition on Discharge: Good Activity: Per Instructions section Non-emergency contact: Primary Care Provider Call non-emergency contact if: you have any medication questions Follow-up/Referrals: PCP,NO [Primary Care Provider] - Diet: Regular Addtl Attending Provider Instructions: You were admitted to the hospital for development of a pulmonary embolism which is a blood clot in your lungs. It is unclear at this time what caused the clot as you are a fairly healthy gentleman but it's possible it developed a month ago after a respiratory infection and being bed ridden at the time. We started you on anticoagulation which you will need to continue for at least the next 3-6 months to treat the embolism. We will send the medication into your pharmacy which you should continue to take. We will try to find you a suitable PCP via [employer] near where you live who you should f/u with in the next 1-2 weeks as well as going forward to ensure adequate treatment. Pending Studies at Discharge: No Stand-Alone Forms: My [facility] [employer], Smoking Cessation Medications and DC Order Prescriptions: New Eliquis 5 mg Tablet 10 mg PO BID Qty: 13 0RF Rx Instructions: next dose evening 05/02. After 10mg bid complete will cont. with 5mg bid. Eliquis 5 mg tablet 5 mg PO BID Qty: 60 0RF Rx Instructions: begin after 10mg bid dosing. Continued meclizine [Dramamine Less Drowsy] 25 mg Tablet 25 mg PO DIRECTED PRN (Reason: Motion Sickness) Discharge Orders: Discharge Order (Routine); Ordered 05/02/22 Ordered By: Alex Boss Admission Data Admit Date/Time: 05/02/22 00:34 Attending Provider: Jaleel Weems Admit Provider: Diamond Corrigan Primary Care Provider: PCP,NO Other Providers: Diamond Corrigan Other Interventions: Discharge Summary Assessment (RN) Last Done: 05/02/22 13:39 Supervising Physician Co-Signing Physician Notes Attending attestation Pt seen and examined in concert with Dr. Boss. In agreement with the documented findings as noted in the resident documentation with any exceptions or additions as noted here. Resolution of symptoms and no SOB with ambulation for short distances at present. Patient with good awareness of underlying health issues and, though medication averse, is open to it if he feels it is necessary. On examination, S1/S2 nl RRR no MCG. CTAB. Abd NT/ND BS+ve Pulmonary embolism - transitioned to apixaban with instructions for 3-6 months. Echo results as noted. Activity modifications recommended. Follow up/establish with PCP for ongoing care. HTN - longstanding diagnosis, not presently managed. Reviewed indications for medication. Recommended obtain cuff for HBPM, log consistent results and present to PCP with cuff for further diagnosis. Else see resident documentation as noted. Total attending physician time spent with this patient's care on the day of aaron lundberg: 35 minutes. Resident Activity Tracking Resident Involvement: Resident Care Provided Care Provided: Adult Hospital Medicine
[2022-05-02] MEDS ORDERED: APIXABAN 5 MG TABLET PO SCH (21:00)
== END 2022-05-02 14:23 | disposition home or self-care (01) | DRG 176 ==
LOC: ED 20:44 → SUATTDRO 05-02 00:34 → 2S 05-02 00:34